=== PATIENT | female | born 1960 | race Caucasian/White ===

== ENCOUNTER 2016-08-20 09:09 | Day surgery (SDC) | payer OTHER ==
[~2016-08-20] VITALS: Ht 170.2 cm; Wt 62.5 kg
[~2016-08-20 09:09] MED LIST: 0.9% Sodium Chloride 1,000 ML IV SCH; CHOL500051 PO; ESTR1PAT81 TRANSDERM; LORA0.5T PO; MULT1CAP33 PO; PROG10PO3 PO; Sodium Chloride LOK Flush 10 mL Syringe IV PRN; TRAZ-115 PO; fentaNYL-PF 50 mCg/mL 2 mL Inj IVPUSH PRN
[2016-08-20] MEDS ORDERED: OMEG-38 PO (09:37)
[2016-08-20 09:45] VITALS: BP 128/82; PULSE 102; RESP 18; O2SAT 97
[2016-08-20 10:32] VITALS: BP 111/63; PULSE 78; RESP 16; O2SAT 96
[2016-08-20 10:42] VITALS: BP 113/72; PULSE 78; RESP 16; O2SAT 97
--- NOTE | 2016-08-20 10:46 | ENDO ---
[address] [address] ENDOSCOPY PROCEDURE PATIENT: LIANET QUINTERO : 1960 MR#: [id number] ADMIT: 08/20/2016 JOB ID: [id number] DATE: 08/20/2016 PROCEDURE: Colonoscopy. INDICATIONS: Screening. The patient's ASA classification is 1. Mallampati score is 1. MEDICATIONS: 1. Versed 3 mg. 2. Fentanyl 75 mcg. INSTRUMENT USED: PCF H 180 AL. PREPARATION QUALITY: Was good. PROCEDURE DETAILS: After informed consent was obtained, the patient was brought into the GI suite, where she was placed on oxygen via nasal cannula and monitored with continuous pulse oximeter, telemetry and blood pressure monitoring. A time-out was performed. Then, she was placed in the left lateral decubitus position and medications were administered for sedation. Digital rectal examination was performed and was unremarkable. The colonoscope was then inserted into the rectum and advanced under direct visualization to the cecum, which was identified by the presence of the ileocecal valve and appendiceal orifice. Once the cecum was reached, the colonoscope was withdrawn back into the rectum as the mucosa and lumen were examined. In the rectum, retroflexion was performed. Following retroflexion, remaining air in the rectum was suctioned, and the procedure was completed. FINDINGS: 1. 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 However, more prominent in the sigmoid colon and rectum. 2. In the descending colon, there was a diminutive polyp that was removed with cold biopsy forceps. 3. Retroflexed views in the rectum were unremarkable. IMPRESSION: 1. Melanosis coli. 2. Descending colon polyp. RECOMMENDATIONS: Repeat colonoscopy pending polyp pathology results. COMPLICATIONS: None. ESTIMATED BLOOD LOSS: Less than 5 mL.
--- NOTE | 2016-08-23 12:12 | PATH ---
SURGICAL PATHOLOGY Attending Physician:Micheal Jane CASE STATUS: Signed Out PATIENT NAME: LIANET QUINTERO PID: [id number] : 1960 DATE COLLECTED:08/20/2016 00:00 SPECIMEN: Colon, Biopsy CLINICAL HISTORY: A: DESCENDING POLYP X1 FINAL DIAGNOSIS: 1.DESCENDING COLON POLYP: TUBULAR ADENOMA. ICD10 CODE D12.4 GROSS DESCRIPTION: The specimen is received in one formalin filled container labeled with the patient's name, sublabeled "descending polyp x1" and consists of a 0.2 x 0.2 x 0.2 CM portion of tissue which is entirely submitted in one cassette. 08/20/2016 DAC MICRO DESCRIPTION: See diagnosis. ICD-9 CODES: CPT CODES: 1: 95987 Electronically Signed Out Matthew Houston MD [facility] Pathology [facility] [address], [place] [address] Technical component performed at [facility], [address] [place] [address] [address], [place], [address]
== END 2016-08-20 23:59 | disposition home or self-care (01) ==
LOC: END 09:09
PROVIDERS: ATTEND Internal Medicine Gastroenterology
DX: Z12.11 Encounter for screening for malignant neoplasm of colon (principal); D12.4 Benign neoplasm of descending colon; K63.89 Other specified diseases of intestine; Z79.899 Other long term (current) drug therapy
CPT/HCPCS: 45380; J2250; J7030